=== PATIENT | female | born 1960 | race Caucasian/White ===

== ENCOUNTER 2016-12-29 19:04 | Inpatient (IN) | payer MEDICAID ==
[~2016-12-29] VITALS: Ht 160 cm; Wt 83.0 kg
[2016-12-29] MEDS ORDERED: ASPI81 PO (19:10)
[2016-12-29] MEDS ORDERED: HYDR-309 PO (19:10)
[2016-12-29] MEDS ORDERED: SIMV-260 PO (19:10)
[2016-12-29 20:39] LABS: BASOPHILS % (AUTO) 0.4 % (0.0-2.0); EOSINOPHILS % (AUTO) 3.1 % (1.0-6.0); HEMATOCRIT 40.8 % (36-46); HEMOGLOBIN 13.5 g/dL (12.0-16.0); LYMPHOCYTES # (AUTO) 2.7 K/uL (1.0-4.8); LYMPHOCYTES % (AUTO) 30.1 % (22.0-44.0); MEAN CORPUSCULAR HEMOGLOBIN 25.9 pg (26.0-34.0); MEAN CORPUSCULAR VOLUME 78 fL (80-100); MONOCYTES # (AUTO) 0.5 K/uL (0.1-1.0); MONOCYTES % (AUTO) 5.6 % (2.0-9.0); NEUTROPHILS # (AUTO) 5.5 K/uL (1.8-7.7); NEUTROPHILS % (AUTO) 60.8 % (40.0-70.0); PLATELET COUNT (AUTO) 376 K/uL (150-450); RED CELL DISTRIBUTION WIDTH 16.3 % (11.5-14.5); WHITE BLOOD COUNT (AUTO) 9.1 K/uL (4.5-11.0)
[2016-12-29 20:52] LABS: ANION GAP 8 mmol/L (8-16); CALCIUM, TOTAL 8.9 mg/dL (8.8-10.5); CARBON DIOXIDE 29 mmol/L (22-29); CHLORIDE 101 mmol/L (98-107); CREATININE 0.66 mg/dL (0.60-1.30); GLOMERULAR FILTR. RATE CALC > 60 mL/min (>60); POTASSIUM 3.4 mmol/L (3.5-5.1); SODIUM SERUM 138 mmol/L (136-145); UREA NITROGEN, BLOOD 17 mg/dL (7-18)
[2016-12-29 20:57] LABS: ALANINE AMINOTRANSFERASE 53 U/L (12-78); ALBUMIN 4.4 g/dL (3.4-5.0); ASPARTATE AMINOTRANSFERASE 32 U/L (15-37); BILIRUBIN,TOTAL 0.3 mg/dL (0.1-1.0); TOTAL PROTEIN, SERUM 8.3 g/dL (6.4-8.2)
[2016-12-29] MEDS ORDERED: ASPIRIN 81 MG CHEWABLE TABLET PO ONE (21:15)
[2016-12-29] MEDS ORDERED: POTASSIUM CHLORIDE 20 MEQ ER TABLET PO ONE (21:15)
[2016-12-29] MEDS ORDERED: NITROGLYCERIN 2% (1 GM=INCH) PACKET TP ONE (21:15)
[2016-12-29] MEDS ORDERED: ACETAMINOPHEN 325 MG TABLET PO PRN ×2 (22:15→22:30)
[2016-12-29] MEDS ORDERED: ALBUTEROL SULFATE 2.5 MG/0.5 ML NEB SOLUTION NEB PRN (22:15)
[2016-12-29] MEDS ORDERED: MAGNESIUM SULFATE 4 GM/WATER 100 ML IV PRN (22:15)
[2016-12-29] MEDS ORDERED: MAGNESIUM HYDROXIDE SUSPENSION 30 ML UDCUP PO PRN (22:15)
[2016-12-29] MEDS ORDERED: OxyCODONE HCL/ACETAMINOPHEN 5-325 MG TABLET PO PRN (22:15)
[2016-12-29] MEDS ORDERED: POTASSIUM CHLORIDE 20 MEQ ER TABLET PO PRN ×2 (22:15)
[2016-12-29] MEDS ORDERED: MAGNESIUM SULFATE 2 GM in DEXTROSE 5%-WATER 50 ML IV PRN (22:15)
[2016-12-29] MEDS ORDERED: MAGNESIUM OXIDE 400 MG TABLET PO PRN (22:15)
[2016-12-29] MEDS ORDERED: ONDANSETRON HCL 4 MG/2 ML VIAL IVP PRN ×2 (22:15→22:30)
[2016-12-29] MEDS ORDERED: IPRATROPIUM BROMIDE 0.5 MG/2.5 ML NEB SOLUTION NEB PRN (22:15)
[2016-12-29] MEDS ORDERED: BISACODYL 10 MG RECTAL RECTAL SUPPOSITORY PR PRN (22:15)
[2016-12-29] MEDS ORDERED: ZOLPIDEM TARTRATE 5 MG TABLET PO PRN (22:15)
[2016-12-29] MEDS ORDERED: POTASSIUM CHL 10 MEQ/WATER 50 ML IV PRN (22:15)
[2016-12-29] MEDS ORDERED: 0.9% SODIUM CHLORIDE 10 ML SYRINGE IVP PRN (22:30)
[2016-12-30] MEDS ORDERED: MORPHINE SULFATE 4 MG/ML SYRINGE IVP ONE
[2016-12-30 07:19] LABS: BASOPHILS # (AUTO) 0.05 K/uL (0.00-0.20); BASOPHILS % (AUTO) 0.5 % (0.0-2.0); EOSINOPHILS # (AUTO) 0.43 K/uL (0.00-0.70); EOSINOPHILS % (AUTO) 5.08 % (1.0-6.0); HEMATOCRIT 36.4 % (36-46); HEMOGLOBIN 12.1 g/dL (12.0-16.0); LYMPHOCYTES # (AUTO) 2.3 K/uL (1.0-4.8); LYMPHOCYTES % (AUTO) 26.6 % (22.0-44.0); MEAN CORPUSCULAR HEMOGLOBIN 26.1 pg (26.0-34.0); MEAN CORPUSCULAR HGB CONC 33.1 G/dL (31.0-37.0); MEAN CORPUSCULAR VOLUME 79 fL (80-100); MONOCYTES # (AUTO) 0.5 K/uL (0.1-1.0); MONOCYTES % (AUTO) 6.1 % (2.0-9.0); NEUTROPHILS # (AUTO) 5.3 K/uL (1.8-7.7); NEUTROPHILS % (AUTO) 61.8 % (40.0-70.0); PLATELET COUNT (AUTO) 347 K/uL (150-450); RED BLOOD CELL COUNT(AUTO) 4.62 MIL/uL (4.00-5.20); RED CELL DISTRIBUTION WIDTH 15.9 % (11.5-14.5); WHITE BLOOD COUNT (AUTO) 8.5 K/uL (4.5-11.0)
[2016-12-30 07:54] LABS: ALANINE AMINOTRANSFERASE 42 U/L (12-78); ALBUMIN 3.6 g/dL (3.4-5.0); ANION GAP 10 mmol/L (8-16); ASPARTATE AMINOTRANSFERASE 26 U/L (15-37); BILIRUBIN,TOTAL 0.4 mg/dL (0.1-1.0); CARBON DIOXIDE 24 mmol/L (22-29); CHLORIDE 106 mmol/L (98-107); CREATININE 0.57 mg/dL (0.60-1.30); GLOMERULAR FILTR. RATE CALC > 60 mL/min (>60); PHOSPHORUS 5.1 mg/dL (2.5-4.9); POTASSIUM 3.9 mmol/L (3.5-5.1); SODIUM SERUM 140 mmol/L (136-145); UREA NITROGEN, BLOOD 21 mg/dL (7-18)
[2016-12-30 08:16] LABS: CALCIUM, TOTAL 8.4 mg/dL (8.8-10.5)
[2016-12-30] MEDS: HEPARIN SODIUM,PORCINE 5,000 UNITS/ML VIAL SQ SCH ×2 (08:50→20:47)
[2016-12-30] MEDS: PANTOPRAZOLE SODIUM 40 MG DR TABLET PO SCH (08:51)
[2016-12-30] MEDS: ASPIRIN 81 MG CHEWABLE TABLET PO SCH (08:51)
[2016-12-30 11:20] VITALS: BP 103/53
[2016-12-30 15:22] VITALS: BP 92/49
[2016-12-30] MEDS ORDERED: -PHARMACY VACCINE NOTE- MISC ONE ×2 (16:30)
[2016-12-30 19:21] VITALS: BP 111/64
[2016-12-30] MEDS ORDERED: SIMVASTATIN 20 MG TABLET PO SCH ×2 (21:00)
[2016-12-30 23:53] VITALS: BP 121/67
[2016-12-31 04:13] VITALS: BP 110/72
[2016-12-31 07:03] VITALS: BP 131/59
[2016-12-31 07:16] LABS: BASOPHILS % (AUTO) 0.4 % (0.0-2.0); EOSINOPHILS % (AUTO) 5.3 % (1.0-6.0); HEMOGLOBIN 12.2 g/dL (12.0-16.0); LYMPHOCYTES # (AUTO) 2.6 K/uL (1.0-4.8); LYMPHOCYTES % (AUTO) 32.6 % (22.0-44.0); MEAN CORPUSCULAR HEMOGLOBIN 26.3 pg (26.0-34.0); MEAN CORPUSCULAR VOLUME 80 fL (80-100); MONOCYTES # (AUTO) 0.5 K/uL (0.1-1.0); MONOCYTES % (AUTO) 6.2 % (2.0-9.0); NEUTROPHILS # (AUTO) 4.4 K/uL (1.8-7.7); NEUTROPHILS % (AUTO) 55.5 % (40.0-70.0); PLATELET COUNT (AUTO) 311 K/uL (150-450); RED BLOOD CELL COUNT(AUTO) 4.63 MIL/uL (4.00-5.20); RED CELL DISTRIBUTION WIDTH 16.4 % (11.5-14.5)
[2016-12-31 07:36] LABS: ALANINE AMINOTRANSFERASE 39 U/L (12-78); ALBUMIN 3.3 g/dL (3.4-5.0); ANION GAP 9 mmol/L (8-16); ASPARTATE AMINOTRANSFERASE 21 U/L (15-37); BILIRUBIN,TOTAL 0.3 mg/dL (0.1-1.0); CALCIUM, TOTAL 8.2 mg/dL (8.8-10.5); CARBON DIOXIDE 27 mmol/L (22-29); CHLORIDE 103 mmol/L (98-107); CREATININE 0.67 mg/dL (0.60-1.30); GLOMERULAR FILTR. RATE CALC > 60 mL/min (>60); SODIUM SERUM 139 mmol/L (136-145); TOTAL PROTEIN, SERUM 6.9 g/dL (6.4-8.2); UREA NITROGEN, BLOOD 18 mg/dL (7-18)
[2016-12-31 07:40] VITALS: BP 118/72
[2016-12-31] MEDS ORDERED: REGADENOSON 0.4 MG/5 ML PF SYRINGE IVP ONE ×2 (08:04→17:17)
[2016-12-31] MEDS ORDERED: SESTAMIBI TC99M/UD ISOTOPE 1 EA INJ INJ ONE (08:10)
[2016-12-31 08:13] VITALS: BP 126/71
[2016-12-31] MEDS: HEPARIN SODIUM,PORCINE 5,000 UNITS/ML VIAL SQ SCH (09:00)
[2016-12-31] MEDS: PANTOPRAZOLE SODIUM 40 MG DR TABLET PO SCH (09:00)
[2016-12-31] MEDS: ASPIRIN 81 MG CHEWABLE TABLET PO SCH (09:00)
[2016-12-31 11:38] VITALS: BP 126/63
[2016-12-31 16:29] VITALS: BP 120/79
== END 2016-12-31 17:45 | disposition home or self-care (01) | DRG 198 ==
LOC: EMS 19:07 → 5N 12-30 09:47
PROVIDERS: ADMIT Internal Medicine; ATTEND Internal Medicine
DX: I20.0 Unstable angina (principal); I10 Essential (primary) hypertension; E87.6 Hypokalemia; E78.5 Hyperlipidemia, unspecified; F41.9 Anxiety disorder, unspecified; G43.909 Migraine, unspecified, not intractable, without status migrainosus; E66.9 Obesity, unspecified; Z68.32 Body mass index [BMI] 32.0-32.9, adult; Z79.82 Long term (current) use of aspirin; Z79.891 Long term (current) use of opiate analgesic; Z79.899 Other long term (current) drug therapy; Z90.49 Acquired absence of other specified parts of digestive tract; Z98.890 Other specified postprocedural states; Z86.73 Personal history of transient ischemic attack (TIA), and cerebral infarction without residual deficits
CPT/HCPCS: 78452; 83735; 84100; 93005; 93017; 93306; 96374; 99285; A9500; J1644; J2270; J2785

== ENCOUNTER 2017-01-13 19:36 | Emergency (ER) | payer MEDICAID ==
[~2017-01-13] VITALS: Ht 167.6 cm; Wt 72.7 kg
[~2017-01-13 19:36] MED LIST: ASPI81 PO; HYDR-309 PO; SIMV-260 PO
[2017-01-13] MEDS ORDERED: IBUPROFEN 800 MG TABLET PO ONE (21:15)
[2017-01-13] MEDS ORDERED: CYCLOBENZAPRINE HCL 10 MG TABLET PO ONE (21:15)
[2017-01-13 21:43] VITALS: BP 122/78
== END 2017-01-13 21:48 | disposition home or self-care (01) ==
LOC: EMS 19:39
DX: R07.89 Other chest pain (principal); I10 Essential (primary) hypertension; E78.00 Pure hypercholesterolemia, unspecified; F41.9 Anxiety disorder, unspecified; Z79.82 Long term (current) use of aspirin
CPT/HCPCS: 93005; 99283